=== PATIENT | male | born 1980 | race Caucasian/White ===

== ENCOUNTER 2018-12-27 16:31 | Emergency (ER) | payer MEDICAID ==
[~2018-12-27] VITALS: Ht 175.3 cm; Wt 83.9 kg
--- NOTE | 2018-12-27 16:53 | NUR ---
PT WAS TRIAGED AND PLACED BACK IN ER WAITING ROOM, THERE ARE NO ER BEDS AVAILABLE AT THIS TIME.
[2018-12-27] MEDS ORDERED: KETOROLAC TROMETHAMINE 60 MG INJ IM ONE ×2 (18:30→18:48)
[2018-12-27] MEDS ORDERED: DIAZEPAM 10 MG/2 ML DISP.SYRIN IM ONE (18:30)
[2018-12-27] MEDS ORDERED: LORAZEPAM 2 MG/1 ML VIAL IM ONE (18:45)
[2018-12-27] MEDS ORDERED: LORAZEPAM 2 MG/1 ML VIAL ONE (18:49)
--- NOTE | 2018-12-27 19:28 | NUR ---
SHIFT REPORT GIVEN TO FLACO Mayer RN.
--- NOTE | 2018-12-27 20:15 | NUR ---
Patient discharged to home in stable conditon. Written and verbal after care instructions given. Patient verbalizes understanding of instructions. VSS, AFEBRILE. Pt out of ER via wheelchair by [employer], at side. No acute distress noted. All belongings with pt.
[2018-12-27 20:23] VITALS: BP 121/85
== END 2018-12-27 20:23 | disposition home or self-care (01) ==
LOC: ER 16:33
DX: M54.5 Low back pain (principal)
CPT/HCPCS: 96372 ×2; 99283; J1885; J2060; A4663